=== PATIENT | male | born 1990 | race Caucasian/White ===

== ENCOUNTER 2019-09-22 11:17 | Emergency (ER) | payer MEDICARE, MEDICAID ==
[~2019-09-22] VITALS: Ht 175.3 cm; Wt 93.9 kg
[~2019-09-22 11:17] MED LIST: CIPROFLOXACIN500 M1 PO; NOHOMEMEDICATIONS
[2019-09-22 14:19] VITALS: BP 145/85
== END 2019-09-22 14:19 | disposition home or self-care (01) ==
LOC: M.ERS 11:17
DX: S93.491A Sprain of other ligament of right ankle, initial encounter (principal); Z88.8 Allergy status to other drugs, medicaments and biological substances; W18.39XA Other fall on same level, initial encounter; Y93.89 Activity, other specified; Y92.89 Other specified places as the place of occurrence of the external cause; Y99.8 Other external cause status